=== PATIENT | male | born 1965 | race Caucasian/White ===

== ENCOUNTER → 2018-12-20 09:00 | Outpatient (CLI) | payer OTHER, SELFPAY ==
[2018-12-20 10:27] LABS: Alanine Aminotransferase 46 IU/L (21-72); Albumin 4.8 g/dL (3.5-5.0); Albumin Globulin Ratio 1.6 (1.0-2.8); Alkaline Phosphatase 41 U/L (38-126); Aspartate Aminotransferase 26 IU/L (17-59); Bilirubin Total 0.5 mg/dL (0.2-1.3); Blood Urea Nitrogen 14 mg/dL (9-20); Calcium 9.5 mg/dL (8.4-10.2); Carbon Dioxide 29 mmol/L (22-32); Chloride 101 mmol/L (98-107); Cholesterol 233 mg/dL (140-199); Estimated Glomerular Filt Rate > 60.0 mL/min (>60); Glucose 106 mg/dL (70-100); HDL Cholesterol 62 mg/dL (40-60); HEMOLYSIS < 15 (0-50); LDL Cholesterol Calculated 152 mg/dL (<100); Potassium 4.4 mmol/L (3.4-5.1); Sodium 140 mmol/L (137-145); Total Protein 7.8 g/dL (6.3-8.2); Triglycerides 97 mg/dL (35-150)
[2018-12-20 10:48] LABS: TSH w/ Reflex to FT4 3.68 uIU/mL (0.47-4.68)
== END ==
PROVIDERS: PCP Internal Medicine; Visit Provider Internal Medicine
DX: E78.00 Pure hypercholesterolemia, unspecified (principal); M1A.9XX0 Chronic gout, unspecified, without tophus (tophi)
CPT/HCPCS: 36415; 80053; 80061; 84443; 84550

== ENCOUNTER → 2019-10-22 08:33 | Outpatient (CLI) | payer OTHER, SELFPAY ==
[2019-10-22 09:41] LABS: Alanine Aminotransferase 24 IU/L (<50); Albumin 4.9 g/dL (3.5-5.0); Albumin Globulin Ratio 1.7 (1.0-2.8); Alkaline Phosphatase 44 U/L (38-126); Aspartate Aminotransferase 32 IU/L (17-59); BUN Creatinine Ratio 24.3 (6-22); Bilirubin Total 0.7 mg/dL (0.2-1.3); Blood Urea Nitrogen 17 mg/dL (9-20); Calcium 9.5 mg/dL (8.4-10.2); Carbon Dioxide 29 mmol/L (22-32); Chloride 102 mmol/L (98-107); Cholesterol 248 mg/dL (140-199); Estimated Glomerular Filt Rate > 60.0 mL/min (>60); Globulin 2.9 g/dL (1.7-4.1); Glucose 96 mg/dL (70-100); HDL Cholesterol 85 mg/dL (40-60); HEMOLYSIS 18 (0-50); LDL Cholesterol Calculated 125 mg/dL (<100); Potassium 4.4 mmol/L (3.4-5.1); Sodium 140 mmol/L (137-145); Total Protein 7.8 g/dL (6.3-8.2); Triglycerides 190 mg/dL (35-150); Uric Acid 6.2 mg/dL (3.5-8.5)
== END ==
PROVIDERS: PCP Internal Medicine; Visit Provider Internal Medicine
DX: Z13.1 Encounter for screening for diabetes mellitus (principal); Z13.220 Encounter for screening for lipoid disorders; Z13.6 Encounter for screening for cardiovascular disorders; M1A.9XX0 Chronic gout, unspecified, without tophus (tophi)
CPT/HCPCS: 36415; 80053; 80061; 84550

== ENCOUNTER → 2020-10-25 10:52 | Outpatient (CLI) | payer OTHER, SELFPAY ==
[2020-10-25 13:01] LABS: COVID19 -Nasal RAPID Negative (Negative)
== END ==
PROVIDERS: PCP Internal Medicine; Visit Provider Specialist
DX: Z01.812 Encounter for preprocedural laboratory examination (principal); Z20.822 Contact with and (suspected) exposure to COVID-19
CPT/HCPCS: 87635; C9803

== ENCOUNTER 2020-10-26 10:34 | Day surgery (SDC) | payer OTHER, SELFPAY ==
--- NOTE | 2020-10-26 | PATH_ITS ---
[facility] Accession Number: [id number] . 01 Material submitted: . colon - CECAL POLYP . 01 Clinical history: . SDC . 02 Diagnosis: Cecum, Polyp, Biopsy: Tubular adenoma. MRV 10/29/2020 1315 Local . 02 Electronically signed: . Susan Velazquez MD, Pathologist NPI- [id number] . 01 Gross description: . CECAL POLYP: Received in formalin is 1 fragment(s) of montes, soft tissue measuring 0.3 x 0.2 x 0.2 cm submitted entirely in 1 cassette(s) /JEAN 10/27/2020 2208 Local . 02 Pathologist provided ICD-10: D12.0 . 02 CPT . 125607 Performed at: 01 [facility] [address] [facility], [place], [place] [id number] MD Jas Luna MD Phone: [phone] Performed at: 02 [facility] [address] [place], [place] [id number] MD Susan Velazquez MD Phone: [phone]
[2020-10-26 10:51] VITALS: BP 150/95; PULSE 93; RESP 16; TEMP 36.2; O2SAT 98; BMI 25.8
[2020-10-26] MEDS: LACTATED RINGERS 1,000 ML 200 ML IV (11:06)
--- NOTE | 2020-10-26 12:12 | PM.HP.1 ---
History of Present Illness History of Present Illness Date Patient Seen: 10/26/20 Time Patient Seen: 12:12 Chief complaint: SDC Narrative: Patient is a gentleman here for screening colonoscopy. Last exam was about 7 years ago. He has had polyps removed in the past. 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) Depression History of closed head injury (04/02/17) Perineal pain in male (04/02/17) Traumatic brain injury Surgical History H/O hernia repair Status post hernia repair Family & Social History Family History Brother Colon cancer Mother COPD (chronic obstructive pulmonary disease) Social History: household members spouse Tobacco & Substance use: Smoking Status Never smoker alcohol intake current alcohol intake frequency 0-2 drinks per day Substance Use Type does not use Meds Home Medications and Allergies Home Medications Medication Instructions Recorded Confirmed Type allopurinol 150 mg PO QDAY 10/26/20 10/26/20 History Allergies Allergy/AdvReac Type Severity Reaction Status Date / Time azithromycin [AZITHROMYCIN] Allergy Unknown Verified 10/26/20 10:48 Review of Systems Review of Systems ROS: Yes All systems reviewed with the patient and are negative except as otherwise documented Exam Vital Signs (past 8 hours): - 10/26/20 10:51 Temperature 97.2 F L Pulse Rate 93 H Respiratory Rate 16 Blood Pressure 150/95 H Pulse Oximetry 98 Oxygen Delivery Method Room Air Narrative Exam Narrative: Pleasant cooperative patient no apparent distress. Lungs are clear to auscultation. No rales or rhonchi. Heart regular rate and rhythm no murmur gallop. Abdomen is soft nontender without mass. No obvious hernias. Patient is alert and oriented x3. Assessment & Plan Assessment & Plan narrative: The patient for a screening colonoscopy. I have discussed the procedure with them. Risks of bleeding, perforation which would necessitate major operation, failure to find remove all lesions, the potential tattoo were all discussed. All questions were answered. They wished to proceed.
--- NOTE | 2020-10-26 12:14 | PM.PREOP ---
Pre-operative Note COVID-19 COVID-19 status: Negative Result date/Date tested (Pos, Neg/Pending): 10/25/20 Interval Note History & Physical reviewed/Exam performed by Physician: Yes Changes to H&P: No ASA Class (for procedural sedation): I
[2020-10-26] MEDS: MIDAZOLAM 5 MG/5 ML VIAL IV ×2 (12:17→12:26)
[2020-10-26] MEDS: fentaNYL 250 MCG/5 ML INJ IV ×2 (12:18→12:26)
[2020-10-26] MEDS: LIDOCAINE JELLY 2% 5 ML 1 APPLIC TOP (12:22)
--- NOTE | 2020-10-26 12:48 | PM.OP.ENDO ---
Operative Date/Time/Diagnoses Date of procedure: 10/26/20 Time of procedure: 12:48 Pre-op diagnosis: Screening exam for colon cancer. Last exam 7 years ago. Personal history of polyps. Post-op diagnosis: same (Single polyp in the cecum.) Procedure & Clinicians Study performed: Colonoscopy with cold biopsy Same procedure as scheduled: Yes Indications: Screening Surgeon: Derrick Castro Procedure Notes SCOAP/Timeout: Performed Procedure in detail: The patient was placed in the left lateral decubitus position and underwent IV sedation directed by the surgeon consisting of fentanyl and Versed. Digital exam was remarkable for a rather tight anal sphincter. The skin in the perianal skin was somewhat pale but there were no cracks or splits and no rash.. The scope was inserted and advanced through the rectum into the sigmoid, descending, transverse, and ascending colon. No lesions were seen. The cecum was reached identified by the ileocecal valve and the appendiceal opening. There was a small polyp in the cecum which I biopsied and completely removed. The scope was gradually brought out. No other Polyps were found. The scope ultimately was retroflexed in the rectum. The appearance was normal.. The scope was removed and the patient tolerated the procedure well. The prep was excellent. Scope withdrawal time: 11 minutes Sedation minutes: 27 Findings: polyp (Cecal) Specimen(s): other (Polyp) Complications: none Post-procedure Recommendations: Colonscopy in 5 years Follow up: as needed Disposition: PACU
[2020-10-26 12:49] VITALS: BP 127/85; PULSE 83; RESP 11; TEMP 36.7; O2SAT 95
[2020-10-26 12:54] VITALS: BP 118/86; PULSE 84; RESP 12; O2SAT 95
[2020-10-26 12:59] VITALS: BP 111/78; PULSE 84; RESP 10; O2SAT 95
[2020-10-26 13:14] VITALS: BP 114/82; PULSE 76; RESP 15; O2SAT 94
[2020-10-26 13:23] VITALS: BP 130/83; PULSE 80; RESP 16; TEMP 37.6; O2SAT 96
--- NOTE | 2020-10-26 13:42 | SUR.PHASEII ---
Pt has met discharge criteria: VSS, denied pain or nausea, able to drink fluids without difficulty, abdomen soft. Discharge instructions discussed, all questions answered. Pt transported via W/C to private vehicle.
== END 2020-10-26 13:35 | disposition home or self-care (01) ==
PROVIDERS: PCP Internal Medicine; Referring Provider Specialist; Visit Provider Specialist
PROC: 0DJD8ZZ Inspection of Lower Intestinal Tract, Via Natural or Artificial Opening Endoscopic (ICD-10-PCS; CPT 45378; principal; 2020-10-26 11:30)
DX: Z12.11 Encounter for screening for malignant neoplasm of colon (principal); Z86.010 Personal history of colon polyps; F32.9 Major depressive disorder, single episode, unspecified; D12.0 Benign neoplasm of cecum
CPT/HCPCS: 45380; 99152; J2250; J3010

== ENCOUNTER → 2021-04-29 07:17 | Outpatient (CLI) | payer OTHER, SELFPAY ==
[2021-04-29 09:02] LABS: Alanine Aminotransferase 23 IU/L (<50); Albumin 4.6 g/dL (3.5-5.0); Albumin Globulin Ratio 1.8 (1.0-2.8); Alkaline Phosphatase 44 U/L (38-126); Aspartate Aminotransferase 30 IU/L (17-59); BUN Creatinine Ratio 16.7 (6-22); Bilirubin Total 0.5 mg/dL (0.2-1.3); Blood Urea Nitrogen 13 mg/dL (9-20); Calcium 9.7 mg/dL (8.4-10.2); Carbon Dioxide 29 mmol/L (22-32); Chloride 105 mmol/L (98-107); Cholesterol 215 mg/dL (140-199); Estimated Glomerular Filt Rate > 60.0 mL/min (>60); Globulin 2.5 g/dL (1.7-4.1); Glucose 91 mg/dL (70-100); HDL Cholesterol 95 mg/dL (40-60); HEMOLYSIS < 15 (0-50); LDL Cholesterol Calculated 86 mg/dL (<100); Potassium 4.6 mmol/L (3.4-5.1); Sodium 141 mmol/L (137-145); Total Protein 7.1 g/dL (6.3-8.2); Triglycerides 169 mg/dL (35-150); Uric Acid 6.1 mg/dL (3.5-8.5)
== END ==
PROVIDERS: PCP Internal Medicine; Referring Provider Internal Medicine; Visit Provider Internal Medicine
DX: M1A.9XX0 Chronic gout, unspecified, without tophus (tophi) (principal); Z13.1 Encounter for screening for diabetes mellitus; Z13.220 Encounter for screening for lipoid disorders
CPT/HCPCS: 36415; 80053; 80061; 84550

== ENCOUNTER → 2023-06-07 07:21 | Outpatient (CLI) | payer OTHER, SELFPAY ==
[2023-06-07 08:54] LABS: Alanine Aminotransferase 28 IU/L (<50); Albumin 4.8 g/dL (3.5-5.0); Albumin Globulin Ratio 1.7 (1.0-2.8); Alkaline Phosphatase 42 U/L (38-126); Aspartate Aminotransferase 31 IU/L (17-59); BUN Creatinine Ratio 21.9 (6-22); Bilirubin Total 0.5 mg/dL (0.2-1.3); Blood Urea Nitrogen 14 mg/dL (9-20); Calcium 9.7 mg/dL (8.4-10.2); Carbon Dioxide 26 mmol/L (22-32); Chloride 104 mmol/L (98-107); Cholesterol 246 mg/dL (140-199); Estimated Glomerular Filt Rate > 60 mL/min (>60); Globulin 2.8 g/dL (1.7-4.1); Glucose 95 mg/dL (70-100); HDL Cholesterol 83 mg/dL (40-60); HEMOLYSIS 33 (0-50); LDL Cholesterol Calculated 105 mg/dL (<100); Potassium 4.8 mmol/L (3.4-5.1); Sodium 140 mmol/L (137-145); Total Protein 7.6 g/dL (6.3-8.2); Triglycerides 292 mg/dL (35-150); Uric Acid 4.4 mg/dL (3.5-8.5)
[2023-06-07 09:16] LABS: Prostate Specific Antigen Scrn 0.295 ng/mL (0.1-4.0)
== END ==
PROVIDERS: PCP Internal Medicine; Referring Provider Internal Medicine; Visit Provider Internal Medicine
DX: F32.9 Major depressive disorder, single episode, unspecified (principal); M1A.9XX0 Chronic gout, unspecified, without tophus (tophi); Z13.1 Encounter for screening for diabetes mellitus; Z13.6 Encounter for screening for cardiovascular disorders; Z79.899 Other long term (current) drug therapy; Z12.5 Encounter for screening for malignant neoplasm of prostate
CPT/HCPCS: 36415; 80053; 80061; 84550; G0103

== ENCOUNTER 2023-08-21 16:00 | Outpatient (RCR) | payer OTHER, SELFPAY ==
--- NOTE | 2023-07-20 15:18 | PT.OPPOC ---
Physical, Occupational & Speech Therapy At [facility] Current Diagnoses Pain in right shoulder (07/20/23) Visit Care Team Role Provider Type Robb Patel MD Attending Provider Physician Family Provider Primary Care Provider Referring Provider Specialty: Internal Medicine Address: [address] [place] [address], [address], [address] Email: [email or web address] Plan Of Care PT-OP-T Assessment and Plan Start: 07/20/23 15:16 Freq: Status: Active Protocol: Document 07/20/23 15:16 AM (Rec: 07/20/23 18:08 AM [id number]) Physical Therapy Assessment Rehab Potential Rehabilitation Potential Excellent Evaluation Complexity Number of Personal Factors/Comorbidities 0 Number of Body Systems Impaired 1-2 Clinical Presentation at Evaluation Stable Impairments Impairments Functional Mobility,Pain, Posture,ROM,Soft Tissue Mobility,Strength Goals HEP New Car Make Ready Worker Goal (LTG) Pt independent with HEP. LTG Duration 08/31/23 ROM Impairment Pt with limitations with R shoulder flexion. AROM at 135 deg Short Term Goal (STG) R=L AROM shoulder flexion. STG Duration 08/10/23 Quick Dash Impairment Pt score of 18% on Quick Dash [facility] Goal (LTG) Pt with score of <10% on Quick Dash LTG Duration 08/31/23 Sleep Impairment Pt with R shoulder pain with sleeping New Car Make Ready Worker Goal (LTG) Pt to report that he is able to sleep without increase in shoulder pain. LTG Duration 08/31/23 Pain Impairment Pt reports 5/10 pain at R shoulder. Short Term Goal (STG) Pt reports 3/10 pain at R shoulder. STG Duration 08/10/23 New Car Make Ready Worker Goal (LTG) Pt reports pain <1/10 at R shoulder LTG Duration 08/31/23 Assessment Summary Assessment Carlos Truong presents to PT to address R shoulder pain that he has been having since March 2023. Pt demonstrates minor limitations in shoulder ROM on R compared to L, with discomfort at end-ranges. Pt demonstrates weakness at R shoulder compared to L. Pt demonstrates scapular dyskinesia, likely contributing to pain. Pt with discomfort with special tests and with MMT of R biceps. Pt able to tolerate AAROM flexion and abduction, given in HEP, though cued to avoid painful ranges. Pt demonstrates good PROM. Pt with forward shoulders and stiffness at pec minor. Pt would benefit from continued PT to improve scapulohumeral mechanics and strength as tolerated to decrease pain with functional tasks. Physical Therapy Plan Frequency and Duration Frequency of Treatment 2x/Week Duration of treatment (weeks) 6 Plan of Care Start Date 07/20/23 Plan of Care End Date 08/31/23 Therapeutic Interventions Therapeutic Interventions Home Exercise Program,Joint Mobilizations,Manual Therapy, Neuromuscular Re-education, Patient/Caregiver Education, Self-Care/Home Management,Soft Tissue Mobilization,Taping, Therapeutic Activities, Therapeutic Exercises Modalities Cold Pack/Ice Massage,Electric Stimulation,Hot Packs, Ultrasound Next Visit Focus/Plan Next Note Type Treatment Note Next Visit Plan Initiate manual techniques, progress shoulder strength as tolerated, improve scapular control Plan of Care Dates Plan of Care Start Date 07/20/23 Plan of Care End Date 08/31/23 Electronically Signed by: Kaylee Kelly, PT 07/20/23 4659 If you are in agreement with this Plan of Care, please return a signed and dated copy. I have reviewed this Plan of Care and certify that the skilled therapy services above are required to meet the patient?s needs. Physician Signature Date Printed Name and Credentials Clinical Instructor Signature Printed Name and Credentials
--- NOTE | 2023-07-20 15:18 | PT.OIE ---
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) Depression History of adenomatous polyp of colon History of closed head injury (04/02/17) Perineal pain in male (04/02/17) Traumatic brain injury Past Surgical History (Last Reviewed 06/05/23 @ 15:28 by Robb Patel MD) H/O hernia repair Status post hernia repair Visit Care Team Role Provider Type Robb Patel MD Attending Provider Physician Family Provider Primary Care Provider Referring Provider Specialty: Internal Medicine Address: [address] [place] [address], [address], [facility] Email: [email or web address] Physical Therapy Initial Evaluation PT-OP-A Visit Information Start: 07/20/23 15:16 Freq: Status: Active Protocol: Document 07/20/23 15:16 AM (Rec: 07/20/23 18:08 AM [id number]) Out-Patient Physical Therapy Visit Information Visit Information Visit Type Initial Evaluation Visit Start Time 15:18 Visit Stop Time 16:00 Total Visit Minutes 42 Visit Number 1 Number of CIGARETTE TESTER Visits 0 Evaluation Information Evaluation Date 07/20/23 PT-OP-B Current Condition Start: 07/20/23 15:16 Freq: Status: Active Protocol: Document 07/20/23 15:16 AM (Rec: 07/20/23 18:08 AM [id number]) Current Condition History of Current Condition Onset Date March 2023 Current Complaints R shoulder pain History of Current Condition Pt reports pain started over the summer. Pt reports that he thinks that he might have fallen on it. Pain at top of shoulder. Pt reports sleep is difficulty. Pt reports symptoms with activity at 90 deg abduction/flexion. Pt reports that he is able to do push-ups without discomfort. Prior Treatments and Tests none scheduled Treatment Goals Patient/Caregiver Goals To decrease pain Prior Functional Status Baseline Function- ADL's Independent Baseline Function- Mobility Independent Current Functional Impairments (Reported) Functional Limitations- ADL's Independent Functional Limitations- Work/School No limitations at work. PT-OP-C Subjective Start: 07/20/23 15:16 Freq: Status: Active Protocol: Document 07/20/23 15:16 AM (Rec: 07/20/23 18:08 AM [id number]) Patient Questionnaires Quick Dash- Upper Extremity Quick Dash UE Score 19 Quick Dash UE Impairment 1 to 19% Impaired (Score 1-19) OP-PT Pain Assessment Pain Assessment Grid Paper Pain Assessment Grid Completed Yes Location Right Proximal Shoulder Pain Location Details R shoulder Intensity 4 Scale Used Numeric (0 - 10) Description Aching Frequency Daily Pain Aggravating Factors Lifting Other Pain Aggravating Factors sleeping on R side, which is preferred side PT-OP-J Posture/Palpation/Skin Start: 07/20/23 15:16 Freq: Status: Active Protocol: Document 07/20/23 15:16 AM (Rec: 07/20/23 18:08 AM [id number]) Posture Evaluation Position Sitting Head/C-Spine Posture Forward Head Shoulder Posture (L) Forward,(R) Forward Scapula Posture (L) Protracted,(R) Protracted, (R) Tipped PT-OP-K Range of Motion Start: 07/20/23 15:16 Freq: Status: Active Protocol: Document 07/20/23 15:16 AM (Rec: 07/20/23 18:08 AM [id number]) Shoulder Goniometric Range of Motion Shoulder Right Passive Flexion 150 Abduction 160 Right Active Shoulder ROM WFL No Testing Position Sitting Flexion 135 Abduction 160 Internal Rotation Behind Back (text) L1 Comments Aply ER: T6 Left Active Testing Position Sitting Flexion 162 Abduction 160 Internal Rotation Behind Back (text) T10 Comments Aply ER: T6 PT-OP-L Special Tests Start: 07/20/23 15:16 Freq: Status: Active Protocol: Document 07/20/23 15:16 AM (Rec: 07/20/23 18:08 AM [id number]) Special Tests Shoulder Special Tests Elevation Impingement Test Results + on R Speed's Biceps Test Results + on R PT-OP-M Strength Start: 07/20/23 15:16 Freq: Status: Active Protocol: Document 07/20/23 15:16 AM (Rec: 07/20/23 18:08 AM [id number]) Shoulder Strength Shoulder Manual Muscle Testing Right Flexion 4 Good Abduction (C5) 4 Good External Rotation 4 Good Internal Rotation 4 Good Comments Pain with abd and flex Left Flexion 5 Normal Abduction (C5) 5 Normal External Rotation 5 Normal Internal Rotation 5 Normal Elbow/Forearm Strength Elbow and Forearm Manual Muscle Testing Right Flexion (C6) 4- Good- Extension (C7) 4 Good Comments Pain with testing of biceps Left Flexion (C6) 5 Normal Extension (C7) 5 Normal PT-OP-Q Treatments Start: 07/20/23 15:16 Freq: Status: Active Protocol: Document 07/20/23 15:16 AM (Rec: 07/20/23 18:08 AM [id number]) Therapeutic Exercises Standing Exercises AAROM abduction Standing Exercise Name Dowel abduction Side right Reps/Minutes x10 Row Standing Exercise Name Standing row Side bilateral Resistance GTB Reps/Minutes x20 Wall slides Standing Exercise Name Wall slides with cues for serratus Side right Reps/Minutes x10 PT-OP-T Assessment and Plan Start: 07/20/23 15:16 Freq: Status: Active Protocol: Document 07/20/23 15:16 AM (Rec: 07/20/23 18:08 AM [id number]) Physical Therapy Assessment Rehab Potential Rehabilitation Potential Excellent Evaluation Complexity Number of Personal Factors/Comorbidities 0 Number of Body Systems Impaired 1-2 Clinical Presentation at Evaluation Stable Impairments Impairments Functional Mobility,Pain, Posture,ROM,Soft Tissue Mobility,Strength Goals HEP Correction Goal (LTG) Pt independent with HEP. LTG Duration 08/31/23 ROM Impairment Pt with limitations with R shoulder flexion. AROM at 135 deg Short Term Goal (STG) R=L AROM shoulder flexion. STG Duration 08/10/23 Quick Dash Impairment Pt score of 18% on Quick Dash Correction Goal (LTG) Pt with score of <10% on Quick Dash LTG Duration 08/31/23 Sleep Impairment Pt with R shoulder pain with sleeping Skid Strapper Goal (LTG) Pt to report that he is able to sleep without increase in shoulder pain. LTG Duration 08/31/23 Pain Impairment Pt reports 5/10 pain at R shoulder. Short Term Goal (STG) Pt reports 3/10 pain at R shoulder. STG Duration 08/10/23 Skid Strapper Goal (LTG) Pt reports pain <1/10 at R shoulder LTG Duration 08/31/23 Assessment Summary Assessment Carlos Truong presents to PT to address R shoulder pain that he has been having since March 2023. Pt demonstrates minor limitations in shoulder ROM on R compared to L, with discomfort at end-ranges. Pt demonstrates weakness at R shoulder compared to L. Pt demonstrates scapular dyskinesia, likely contributing to pain. Pt with discomfort with special tests and with MMT of R biceps. Pt able to tolerate AAROM flexion and abduction, given in HEP, though cued to avoid painful ranges. Pt demonstrates good PROM. Pt with forward shoulders and stiffness at pec minor. Pt would benefit from continued PT to improve scapulohumeral mechanics and strength as tolerated to decrease pain with functional tasks. Physical Therapy Plan Frequency and Duration Frequency of Treatment 2x/Week Duration of treatment (weeks) 6 Plan of Care Start Date 07/20/23 Plan of Care End Date 08/31/23 Therapeutic Interventions Therapeutic Interventions Home Exercise Program,Joint Mobilizations,Manual Therapy, Neuromuscular Re-education, Patient/Caregiver Education, Self-Care/Home Management,Soft Tissue Mobilization,Taping, Therapeutic Activities, Therapeutic Exercises Modalities Cold Pack/Ice Massage,Electric Stimulation,Hot Packs, Ultrasound Next Visit Focus/Plan Next Note Type Treatment Note Next Visit Plan Initiate manual techniques, progress shoulder strength as tolerated, improve scapular control
--- NOTE | 2023-07-23 15:17 | PT.OTN ---
Current Diagnoses Pain in right shoulder (07/23/23) Physical Therapy Treatment Note PT-OP-A Visit Information Start: 07/20/23 15:16 Freq: Status: Active Protocol: Document 07/23/23 15:17 AM (Rec: 07/23/23 17:28 AM [id number]) Out-Patient Physical Therapy Visit Information Visit Information Visit Type Treatment Note Visit Start Time 15:17 Visit Stop Time 16:02 Total Visit Minutes 45 Visit Number 2 PT-OP-B Current Condition Start: 07/20/23 15:16 Freq: Status: Active Protocol: Document 07/23/23 15:17 AM (Rec: 07/23/23 17:28 AM [id number]) Current Condition History of Current Condition Onset Date March 2023 Current Complaints R shoulder pain History of Current Condition Pt reports pain started over the summer. Pt reports that he thinks that he might have fallen on it. Pain at top of shoulder. Pt reports sleep is difficulty. Pt reports symptoms with activity at 90 deg abduction/flexion. Pt reports that he is able to do push-ups without discomfort. Prior Treatments and Tests none scheduled PT-OP-C Subjective Start: 07/20/23 15:16 Freq: Status: Active Protocol: Document 07/23/23 15:17 AM (Rec: 07/23/23 17:29 AM [id number]) OP-PT Subjective Patient Comments Patient Comments Pt reports similar pain complaints. Pt denies pain with HEP. PT-OP-J Posture/Palpation/Skin Start: 07/20/23 15:16 Freq: Status: Active Protocol: Document 07/20/23 15:16 AM (Rec: 07/20/23 18:08 AM [id number]) Posture Evaluation Position Sitting Head/C-Spine Posture Forward Head Shoulder Posture (L) Forward,(R) Forward Scapula Posture (L) Protracted,(R) Protracted, (R) Tipped PT-OP-K Range of Motion Start: 07/20/23 15:16 Freq: Status: Active Protocol: Document 07/20/23 15:16 AM (Rec: 07/20/23 18:08 AM [id number]) Shoulder Goniometric Range of Motion Shoulder Right Passive Flexion 150 Abduction 160 Right Active Shoulder ROM WFL No Testing Position Sitting Flexion 135 Abduction 160 Internal Rotation Behind Back (text) L1 Comments Aply ER: T6 Left Active Testing Position Sitting Flexion 162 Abduction 160 Internal Rotation Behind Back (text) T10 Comments Aply ER: T6 PT-OP-L Special Tests Start: 07/20/23 15:16 Freq: Status: Active Protocol: Document 07/20/23 15:16 AM (Rec: 07/20/23 18:08 AM [id number]) Special Tests Shoulder Special Tests Elevation Impingement Test Results + on R Speed's Biceps Test Results + on R PT-OP-M Strength Start: 07/20/23 15:16 Freq: Status: Active Protocol: Document 07/20/23 15:16 AM (Rec: 07/20/23 18:08 AM [id number]) Shoulder Strength Shoulder Manual Muscle Testing Right Flexion 4 Good Abduction (C5) 4 Good External Rotation 4 Good Internal Rotation 4 Good Comments Pain with abd and flex Left Flexion 5 Normal Abduction (C5) 5 Normal External Rotation 5 Normal Internal Rotation 5 Normal Elbow/Forearm Strength Elbow and Forearm Manual Muscle Testing Right Flexion (C6) 4- Good- Extension (C7) 4 Good Comments Pain with testing of biceps Left Flexion (C6) 5 Normal Extension (C7) 5 Normal PT-OP-Q Treatments Start: 07/20/23 15:16 Freq: Status: Active Protocol: Document 07/23/23 15:17 AM (Rec: 07/23/23 17:28 AM [id number]) Cardio Equipment Upper Body Ergometer (UBE) Duration (Minutes) 4 RPM 70 Seat Position 12 Other fwd/back Therapeutic Exercises Supine Exercises Rhythmic stab Supine Exercise Name Shoulder at 90 deg Side right Reps/Minutes 2x30 sec Comments manual perturbations at arm Serratus punch Supine Exercise Name Serratus punch Side right Resistance 2# Reps/Minutes 2x10 Prone Exercises Prone row Prone Exercise Name Prone row Side right Reps/Minutes x15 Comments tactile cueing for scapular control Sidelying Exercises Shoulder abduction Sidelying Exercise Name Shoulder abduction to 90 deg Side right Reps/Minutes 2x10 Shoulder ER Sidelying Exercise Name Sidelying shoulder ER Side right Equipment Used towel at elbow Reps/Minutes 2x10 Comments 1# weight added to second set Standing Exercises Shoulder extension Standing Exercise Name Shoulder extension Side bilateral Resistance GTB Reps/Minutes 2x10 Row Standing Exercise Name Standing row Side bilateral Resistance GTB Reps/Minutes 2x10 Wall slides Standing Exercise Name Wall slides with cues for serratus Side right Reps/Minutes x10 Manual Therapy Treatment Soft Tissue Mobilization Periscapular Body Location infraspinatus, teres major/ minor, posterior deltoid Body Position Prone Comments R arm hanging off of table Joint Mobilizations Shoulder Joint S-I glide Direction S-I Grade III Body Position Supine PT-OP-T Assessment and Plan Start: 07/20/23 15:16 Freq: Status: Active Protocol: Document 07/23/23 15:17 AM (Rec: 07/23/23 17:28 AM [id number]) Physical Therapy Assessment Impairments Impairments Functional Mobility,Pain, Posture,ROM,Soft Tissue Mobility,Strength Goals HEP Retirement Goal (LTG) Pt independent with HEP. LTG Duration 08/31/23 ROM Impairment Pt with limitations with R shoulder flexion. AROM at 135 deg Short Term Goal (STG) R=L AROM shoulder flexion. STG Duration 08/10/23 Quick Dash Impairment Pt score of 18% on Quick Dash Retirement Goal (LTG) Pt with score of <10% on Quick Dash LTG Duration 08/31/23 Sleep Impairment Pt with R shoulder pain with sleeping Outside Plant Technician Goal (LTG) Pt to report that he is able to sleep without increase in shoulder pain. LTG Duration 08/31/23 Pain Impairment Pt reports 5/10 pain at R shoulder. Short Term Goal (STG) Pt reports 3/10 pain at R shoulder. STG Duration 08/10/23 Retirement Goal (LTG) Pt reports pain <1/10 at R shoulder LTG Duration 08/31/23 Assessment Summary Assessment Pt demonstrates continued scapular dyskinesia with R shoulder AROM. Pt required tactile cueing for scapular retraction. Pt with tenderness at scapular muscles with STM, particularly at infraspinatus . Pt would benefit from continued PT to progress rotator cuff strength and scapular mechanics to decrease pain with UE activities. Physical Therapy Plan Frequency and Duration Frequency of Treatment 2x/Week Duration of treatment (weeks) 6 Plan of Care Start Date 07/20/23 Plan of Care End Date 08/31/23 Therapeutic Interventions Therapeutic Interventions Home Exercise Program,Joint Mobilizations,Manual Therapy, Neuromuscular Re-education, Patient/Caregiver Education, Self-Care/Home Management,Soft Tissue Mobilization,Taping, Therapeutic Activities, Therapeutic Exercises Modalities Cold Pack/Ice Massage,Electric Stimulation,Hot Packs, Ultrasound Next Visit Focus/Plan Next Note Type Treatment Note Next Visit Plan progress shoulder strength as tolerated, improve scapular control
--- NOTE | 2023-07-26 15:17 | PT.OTN ---
Current Diagnoses Pain in right shoulder (07/26/23) Physical Therapy Treatment Note PT-OP-A Visit Information Start: 07/20/23 15:16 Freq: Status: Active Protocol: Document 07/26/23 15:17 AM (Rec: 07/26/23 17:09 AM [id number]) Out-Patient Physical Therapy Visit Information Visit Information Visit Type Treatment Note Visit Start Time 15:21 Visit Stop Time 16:06 Total Visit Minutes 45 Visit Number 3 PT-OP-B Current Condition Start: 07/20/23 15:16 Freq: Status: Active Protocol: Document 07/23/23 15:17 AM (Rec: 07/23/23 17:28 AM [id number]) Current Condition History of Current Condition Onset Date March 2023 Current Complaints R shoulder pain History of Current Condition Pt reports pain started over the summer. Pt reports that he thinks that he might have fallen on it. Pain at top of shoulder. Pt reports sleep is difficulty. Pt reports symptoms with activity at 90 deg abduction/flexion. Pt reports that he is able to do push-ups without discomfort. Prior Treatments and Tests none scheduled PT-OP-C Subjective Start: 07/20/23 15:16 Freq: Status: Active Protocol: Document 07/26/23 15:17 AM (Rec: 07/26/23 17:09 AM [id number]) OP-PT Subjective Patient Comments Patient Comments Pt reports that his shoulder felt better after last session . Pt continues to have clicking at top of shoulder. PT-OP-J Posture/Palpation/Skin Start: 07/20/23 15:16 Freq: Status: Active Protocol: Document 07/20/23 15:16 AM (Rec: 07/20/23 18:08 AM [id number]) Posture Evaluation Position Sitting Head/C-Spine Posture Forward Head Shoulder Posture (L) Forward,(R) Forward Scapula Posture (L) Protracted,(R) Protracted, (R) Tipped PT-OP-K Range of Motion Start: 07/20/23 15:16 Freq: Status: Active Protocol: Document 07/20/23 15:16 AM (Rec: 07/20/23 18:08 AM [id number]) Shoulder Goniometric Range of Motion Shoulder Right Passive Flexion 150 Abduction 160 Right Active Shoulder ROM WFL No Testing Position Sitting Flexion 135 Abduction 160 Internal Rotation Behind Back (text) L1 Comments Aply ER: T6 Left Active Testing Position Sitting Flexion 162 Abduction 160 Internal Rotation Behind Back (text) T10 Comments Aply ER: T6 PT-OP-L Special Tests Start: 07/20/23 15:16 Freq: Status: Active Protocol: Document 07/20/23 15:16 AM (Rec: 07/20/23 18:08 AM [id number]) Special Tests Shoulder Special Tests Elevation Impingement Test Results + on R Speed's Biceps Test Results + on R PT-OP-M Strength Start: 07/20/23 15:16 Freq: Status: Active Protocol: Document 07/20/23 15:16 AM (Rec: 07/20/23 18:08 AM [id number]) Shoulder Strength Shoulder Manual Muscle Testing Right Flexion 4 Good Abduction (C5) 4 Good External Rotation 4 Good Internal Rotation 4 Good Comments Pain with abd and flex Left Flexion 5 Normal Abduction (C5) 5 Normal External Rotation 5 Normal Internal Rotation 5 Normal Elbow/Forearm Strength Elbow and Forearm Manual Muscle Testing Right Flexion (C6) 4- Good- Extension (C7) 4 Good Comments Pain with testing of biceps Left Flexion (C6) 5 Normal Extension (C7) 5 Normal PT-OP-Q Treatments Start: 07/20/23 15:16 Freq: Status: Active Protocol: Document 07/26/23 15:17 AM (Rec: 07/26/23 17:09 AM [id number]) Therapeutic Exercises Sidelying Exercises Shoulder abduction Sidelying Exercise Name Shoulder abduction to 90 deg Side right Reps/Minutes 2x10 Comments manual MWM for upward rot of scapula Shoulder ER Sidelying Exercise Name Sidelying shoulder ER Side right Equipment Used towel at elbow Reps/Minutes 2x10 Comments tactile cues for LT and scap stab Standing Exercises Linus shoulder ER Resistance peach TB Reps/Minutes x10 Comments cues for LT engagement Shoulder extension Standing Exercise Name Shoulder extension Side bilateral Resistance GTB Reps/Minutes 2x10 Comments tactile cueing for scap stab, LT Row Standing Exercise Name Standing row Side bilateral Resistance GTB Reps/Minutes 2x10 Comments cues for scap stab Wall slides Standing Exercise Name Wall slides with cues for serratus Side right Reps/Minutes x10 Comments peach TB at wrists, foam roller Manual Therapy Treatment Soft Tissue Mobilization Periscapular Body Location infraspinatus, teres major/ minor, posterior deltoid Body Position Sidelying Comments L sidelying Joint Mobilizations Shoulder Joint S-I glide Direction S-I Grade III Body Position Supine PT-OP-T Assessment and Plan Start: 07/20/23 15:16 Freq: Status: Active Protocol: Document 07/26/23 15:17 AM (Rec: 07/26/23 17:09 AM [id number]) Physical Therapy Assessment Impairments Impairments Functional Mobility,Pain, Posture,ROM,Soft Tissue Mobility,Strength Goals HEP Fdc Goal (LTG) Pt independent with HEP. LTG Duration 08/31/23 ROM Impairment Pt with limitations with R shoulder flexion. AROM at 135 deg Short Term Goal (STG) R=L AROM shoulder flexion. STG Duration 08/10/23 Quick Dash Impairment Pt score of 18% on Quick Dash Cutting Machine Offbearer Goal (LTG) Pt with score of <10% on Quick Dash LTG Duration 08/31/23 Sleep Impairment Pt with R shoulder pain with sleeping Cutting Machine Offbearer Goal (LTG) Pt to report that he is able to sleep without increase in shoulder pain. LTG Duration 08/31/23 Pain Impairment Pt reports 5/10 pain at R shoulder. Short Term Goal (STG) Pt reports 3/10 pain at R shoulder. STG Duration 08/10/23 Cutting Machine Offbearer Goal (LTG) Pt reports pain <1/10 at R shoulder LTG Duration 08/31/23 Assessment Summary Assessment Pt demonstrates improving activation of LT with tactile cueing. Pt with improved tolerance to shoulder ER with scap stab. Pt continues to demonstrate tenderness at infraspinatus and teres. Pt would benefit from continued PT to progress scapular stabilization and rotator cuff strength as tolerated. Physical Therapy Plan Frequency and Duration Frequency of Treatment 2x/Week Duration of treatment (weeks) 6 Plan of Care Start Date 07/20/23 Plan of Care End Date 08/31/23 Therapeutic Interventions Therapeutic Interventions Home Exercise Program,Joint Mobilizations,Manual Therapy, Neuromuscular Re-education, Patient/Caregiver Education, Self-Care/Home Management,Soft Tissue Mobilization,Taping, Therapeutic Activities, Therapeutic Exercises Modalities Cold Pack/Ice Massage,Electric Stimulation,Hot Packs, Ultrasound Next Visit Focus/Plan Next Note Type Treatment Note Next Visit Plan progress shoulder strength as tolerated, improve scapular control
--- NOTE | 2023-08-16 14:19 | PT.OTN ---
Current Diagnoses Pain in right shoulder (08/16/23) Physical Therapy Treatment Note PT-OP-A Visit Information Start: 07/20/23 15:16 Freq: Status: Active Protocol: Document 08/16/23 14:19 AM (Rec: 08/16/23 16:25 AM [id number]) Out-Patient Physical Therapy Visit Information Visit Information Visit Type Progress Note Visit Start Time 14:19 Visit Stop Time 15:01 Total Visit Minutes 42 Visit Number 4 PT-OP-B Current Condition Start: 07/20/23 15:16 Freq: Status: Active Protocol: Document 07/23/23 15:17 AM (Rec: 07/23/23 17:28 AM [id number]) Current Condition History of Current Condition Onset Date March 2023 Current Complaints R shoulder pain History of Current Condition Pt reports pain started over the summer. Pt reports that he thinks that he might have fallen on it. Pain at top of shoulder. Pt reports sleep is difficulty. Pt reports symptoms with activity at 90 deg abduction/flexion. Pt reports that he is able to do push-ups without discomfort. Prior Treatments and Tests none scheduled PT-OP-C Subjective Start: 07/20/23 15:16 Freq: Status: Active Protocol: Document 08/16/23 14:19 AM (Rec: 08/16/23 16:25 AM [id number]) OP-PT Subjective Patient Comments Patient Comments Pt reports that he can now sleep on R side. Pt reports minimal improvement since start of PT. PT-OP-J Posture/Palpation/Skin Start: 07/20/23 15:16 Freq: Status: Active Protocol: Document 07/20/23 15:16 AM (Rec: 07/20/23 18:08 AM [id number]) Posture Evaluation Position Sitting Head/C-Spine Posture Forward Head Shoulder Posture (L) Forward,(R) Forward Scapula Posture (L) Protracted,(R) Protracted, (R) Tipped PT-OP-K Range of Motion Start: 07/20/23 15:16 Freq: Status: Active Protocol: Document 07/20/23 15:16 AM (Rec: 07/20/23 18:08 AM [id number]) Shoulder Goniometric Range of Motion Shoulder Right Passive Flexion 150 Abduction 160 Right Active Shoulder ROM WFL No Testing Position Sitting Flexion 135 Abduction 160 Internal Rotation Behind Back (text) L1 Comments Aply ER: T6 Left Active Testing Position Sitting Flexion 162 Abduction 160 Internal Rotation Behind Back (text) T10 Comments Aply ER: T6 PT-OP-L Special Tests Start: 07/20/23 15:16 Freq: Status: Active Protocol: Document 07/20/23 15:16 AM (Rec: 07/20/23 18:08 AM [id number]) Special Tests Shoulder Special Tests Elevation Impingement Test Results + on R Speed's Biceps Test Results + on R PT-OP-M Strength Start: 07/20/23 15:16 Freq: Status: Active Protocol: Document 07/20/23 15:16 AM (Rec: 07/20/23 18:08 AM [id number]) Shoulder Strength Shoulder Manual Muscle Testing Right Flexion 4 Good Abduction (C5) 4 Good External Rotation 4 Good Internal Rotation 4 Good Comments Pain with abd and flex Left Flexion 5 Normal Abduction (C5) 5 Normal External Rotation 5 Normal Internal Rotation 5 Normal Elbow/Forearm Strength Elbow and Forearm Manual Muscle Testing Right Flexion (C6) 4- Good- Extension (C7) 4 Good Comments Pain with testing of biceps Left Flexion (C6) 5 Normal Extension (C7) 5 Normal PT-OP-Q Treatments Start: 07/20/23 15:16 Freq: Status: Active Protocol: Document 08/16/23 14:19 AM (Rec: 08/16/23 16:25 AM [id number]) Cardio Equipment Upper Body Ergometer (UBE) Duration (Minutes) 4 RPM 70 Seat Position 12 Other fwd/back Therapeutic Exercises Prone Exercises Prone row Prone Exercise Name Prone row Side right Reps/Minutes x15 Comments tactile cueing for scapular control Sidelying Exercises Shoulder abduction Sidelying Exercise Name Shoulder abduction to 90 deg Side right Reps/Minutes 2x10 Comments manual MWM for upward rot of scapula Shoulder ER Sidelying Exercise Name Sidelying shoulder ER Side right Equipment Used towel at elbow Reps/Minutes 2x10 Comments tactile cues for LT and scap stab Standing Exercises Linus shoulder ER Resistance peach TB Reps/Minutes x10 Comments cues for LT engagement Shoulder extension Standing Exercise Name Shoulder extension Side bilateral Resistance GTB Reps/Minutes 2x10 Comments tactile cueing for scap stab, LT Row Standing Exercise Name Standing row Side bilateral Resistance GTB Reps/Minutes 2x10 Comments cues for scap stab Wall slides Standing Exercise Name Wall slides with cues for serratus Side right Reps/Minutes x10 Comments peach TB at wrists, foam roller Manual Therapy Treatment Soft Tissue Mobilization Periscapular Body Location infraspinatus, teres major/ minor, posterior deltoid Body Position Sidelying Comments L sidelying Joint Mobilizations Shoulder Joint S-I glide Direction S-I Grade III Body Position Supine PT-OP-T Assessment and Plan Start: 07/20/23 15:16 Freq: Status: Active Protocol: Document 08/16/23 14:19 AM (Rec: 08/16/23 16:25 AM [id number]) Physical Therapy Assessment Goals HEP Regional Trainer Goal (LTG) Pt independent with HEP. LTG Duration 08/31/23 ROM Impairment Pt with limitations with R shoulder flexion. AROM at 135 deg Short Term Goal (STG) R=L AROM shoulder flexion. 08/16/23: Pt progressing, though goal unmet. Pt with AROM flexion of 142 deg STG Duration 08/10/23 Quick Dash Impairment Pt score of 18% on Quick Dash Assisted Goal (LTG) Pt with score of <10% on Quick Dash LTG Duration 08/31/23 Sleep Impairment Pt with R shoulder pain with sleeping Short Term Goal (STG) 08/16/23: Pt reports that pain is decreased with sleep, though continues to wake him up at times. Regional Trainer Goal (LTG) Pt to report that he is able to sleep without increase in shoulder pain. LTG Duration 08/31/23 Pain Impairment Pt reports 5/10 pain at R shoulder. Short Term Goal (STG) Pt reports 3/10 pain at R shoulder. 08/16/23: Pt reports continued pain up to 5/10 at times. STG Duration 08/10/23 Regional Trainer Goal (LTG) Pt reports pain <1/10 at R shoulder LTG Duration 08/31/23 Progress Towards Goals Progress Towards Goals Slow Progress due to Attendance Issues Assessment Summary Assessment Pt demonstrates improving activation of LT, though continues to require tactile and manual cueing. Pt with poor scapular upward rotation with sidelying shoulder flexion. Pt with continued discomfort with manual assist with scapular upward rotation. Physical Therapy Plan Frequency and Duration Frequency of Treatment 2x/Week Duration of treatment (weeks) 6 Plan of Care Start Date 07/20/23 Plan of Care End Date 08/31/23 Therapeutic Interventions Therapeutic Interventions Home Exercise Program,Joint Mobilizations,Manual Therapy, Neuromuscular Re-education, Patient/Caregiver Education, Self-Care/Home Management,Soft Tissue Mobilization,Taping, Therapeutic Activities, Therapeutic Exercises Modalities Cold Pack/Ice Massage,Electric Stimulation,Hot Packs, Ultrasound Next Visit Focus/Plan Next Note Type Treatment Note Next Visit Plan progress shoulder strength as tolerated, improve scapular control
--- NOTE | 2023-08-21 16:05 | PT.OTN ---
Current Diagnoses Pain in right shoulder (08/21/23) Physical Therapy Treatment Note PT-OP-A Visit Information Start: 07/20/23 15:16 Freq: Status: Active Protocol: Document 08/21/23 16:05 AM (Rec: 08/21/23 17:05 AM [id number]) Out-Patient Physical Therapy Visit Information Visit Information Visit Type Treatment Note Visit Start Time 16:07 Visit Stop Time 16:52 Total Visit Minutes 40 Visit Number 5 PT-OP-B Current Condition Start: 07/20/23 15:16 Freq: Status: Active Protocol: Document 07/23/23 15:17 AM (Rec: 07/23/23 17:28 AM [id number]) Current Condition History of Current Condition Onset Date March 2023 Current Complaints R shoulder pain History of Current Condition Pt reports pain started over the summer. Pt reports that he thinks that he might have fallen on it. Pain at top of shoulder. Pt reports sleep is difficulty. Pt reports symptoms with activity at 90 deg abduction/flexion. Pt reports that he is able to do push-ups without discomfort. Prior Treatments and Tests none scheduled PT-OP-C Subjective Start: 07/20/23 15:16 Freq: Status: Active Protocol: Document 08/21/23 16:05 AM (Rec: 08/21/23 17:05 AM [id number]) OP-PT Subjective Patient Comments Patient Comments Pt reports My shoulder is not terrible today. Pt reports that he called his referring provider to make appt and hopeful for MRI. PT-OP-J Posture/Palpation/Skin Start: 07/20/23 15:16 Freq: Status: Active Protocol: Document 07/20/23 15:16 AM (Rec: 07/20/23 18:08 AM [id number]) Posture Evaluation Position Sitting Head/C-Spine Posture Forward Head Shoulder Posture (L) Forward,(R) Forward Scapula Posture (L) Protracted,(R) Protracted, (R) Tipped PT-OP-K Range of Motion Start: 07/20/23 15:16 Freq: Status: Active Protocol: Document 07/20/23 15:16 AM (Rec: 07/20/23 18:08 AM [id number]) Shoulder Goniometric Range of Motion Shoulder Right Passive Flexion 150 Abduction 160 Right Active Shoulder ROM WFL No Testing Position Sitting Flexion 135 Abduction 160 Internal Rotation Behind Back (text) L1 Comments Aply ER: T6 Left Active Testing Position Sitting Flexion 162 Abduction 160 Internal Rotation Behind Back (text) T10 Comments Aply ER: T6 PT-OP-L Special Tests Start: 07/20/23 15:16 Freq: Status: Active Protocol: Document 07/20/23 15:16 AM (Rec: 07/20/23 18:08 AM [id number]) Special Tests Shoulder Special Tests Elevation Impingement Test Results + on R Speed's Biceps Test Results + on R PT-OP-M Strength Start: 07/20/23 15:16 Freq: Status: Active Protocol: Document 07/20/23 15:16 AM (Rec: 07/20/23 18:08 AM [id number]) Shoulder Strength Shoulder Manual Muscle Testing Right Flexion 4 Good Abduction (C5) 4 Good External Rotation 4 Good Internal Rotation 4 Good Comments Pain with abd and flex Left Flexion 5 Normal Abduction (C5) 5 Normal External Rotation 5 Normal Internal Rotation 5 Normal Elbow/Forearm Strength Elbow and Forearm Manual Muscle Testing Right Flexion (C6) 4- Good- Extension (C7) 4 Good Comments Pain with testing of biceps Left Flexion (C6) 5 Normal Extension (C7) 5 Normal PT-OP-Q Treatments Start: 07/20/23 15:16 Freq: Status: Active Protocol: Document 08/21/23 16:05 AM (Rec: 08/21/23 17:05 AM [id number]) Cardio Equipment Upper Body Ergometer (UBE) Duration (Minutes) 5 RPM 70 Seat Position 12 Other fwd/back Therapeutic Exercises Prone Exercises Prone extension Resistance 2 Reps/Minutes 2x10 Comments on maltese ball, cues for scapular control Prone row Prone Exercise Name Prone row Side bilateral Resistance 2 Reps/Minutes 2x10 Comments on ball, tactile cueing for scapular control Sidelying Exercises MT Sidelying Exercise Name Prone MT, cues for scapular control Shoulder ER Sidelying Exercise Name Sidelying shoulder ER Side right Equipment Used towel at elbow Reps/Minutes 2x10 Comments tactile cues for LT and scap stab Standing Exercises Corner pec stretch Side bilateral Reps/Minutes x30 sec Shoulder extension Standing Exercise Name Shoulder extension Side bilateral Resistance GTB Reps/Minutes 2x10 Comments tactile cueing for scap stab, LT Row Standing Exercise Name Standing row Side bilateral Resistance GTB Reps/Minutes 2x10 Comments cues for scap stab Other Exercises Foam roll Other Exercise Name pec stretch and foam rolling thoracic spine Equipment Used black foam roller Manual Therapy Treatment Soft Tissue Mobilization Periscapular Body Location infraspinatus, teres major/ minor, posterior deltoid Body Position Sidelying Comments L sidelying Manual Techniques PROM Type all directions PT-OP-T Assessment and Plan Start: 07/20/23 15:16 Freq: Status: Active Protocol: Document 08/21/23 16:05 AM (Rec: 08/21/23 17:05 AM [id number]) Physical Therapy Assessment Goals HEP Hematologist Oncologist Goal (LTG) Pt independent with HEP. LTG Duration 08/31/23 ROM Impairment Pt with limitations with R shoulder flexion. AROM at 135 deg Short Term Goal (STG) R=L AROM shoulder flexion. 08/16/23: Pt progressing, though goal unmet. Pt with AROM flexion of 142 deg STG Duration 08/10/23 Quick Dash Impairment Pt score of 18% on Quick Dash Usp Goal (LTG) Pt with score of <10% on Quick Dash LTG Duration 08/31/23 Sleep Impairment Pt with R shoulder pain with sleeping Short Term Goal (STG) 08/16/23: Pt reports that pain is decreased with sleep, though continues to wake him up at times. Usp Goal (LTG) Pt to report that he is able to sleep without increase in shoulder pain. LTG Duration 08/31/23 Pain Impairment Pt reports 5/10 pain at R shoulder. Short Term Goal (STG) Pt reports 3/10 pain at R shoulder. 08/16/23: Pt reports continued pain up to 5/10 at times. STG Duration 08/10/23 Hematologist Oncologist Goal (LTG) Pt reports pain <1/10 at R shoulder LTG Duration 08/31/23 Assessment Summary Assessment Pt continues to demonstrate difficulty with scapular control, particularly with LT. Pt requires manual cueing of scapula exercise. Pt demonstrates difficulty with upward rotation of scapula with flexion and abduction. Pt with stiffness of pecs and scapulothoracic region, likely contributing to movement faults at scapula. Pt would benefit form continued PT to progress functional shoulder strength. Physical Therapy Plan Frequency and Duration Frequency of Treatment 2x/Week Duration of treatment (weeks) 6 Plan of Care Start Date 07/20/23 Plan of Care End Date 08/31/23 Therapeutic Interventions Therapeutic Interventions Home Exercise Program,Joint Mobilizations,Manual Therapy, Neuromuscular Re-education, Patient/Caregiver Education, Self-Care/Home Management,Soft Tissue Mobilization,Taping, Therapeutic Activities, Therapeutic Exercises Modalities Cold Pack/Ice Massage,Electric Stimulation,Hot Packs, Ultrasound Next Visit Focus/Plan Next Note Type Treatment Note Next Visit Plan progress shoulder strength as tolerated, improve scapular control
--- NOTE | 2023-08-29 12:12 | PT.OPDS ---
Current Diagnoses Pain in right shoulder (08/21/23) Visit Care Team Role Provider Type Robb Patel MD Attending Provider Physician Family Provider Primary Care Provider Referring Provider Specialty: Internal Medicine Address: [address] [place] [address], [facility] [address], [address] Email: [email or web address] Visit Number Visit Number 5 Discharge Summary PT-OP-B Current Condition Start: 07/20/23 15:16 Freq: Status: Active Protocol: Document 07/23/23 15:17 AM (Rec: 07/23/23 17:28 AM [id number]) Current Condition History of Current Condition Onset Date March 2023 Current Complaints R shoulder pain History of Current Condition Pt reports pain started over the summer. Pt reports that he thinks that he might have fallen on it. Pain at top of shoulder. Pt reports sleep is difficulty. Pt reports symptoms with activity at 90 deg abduction/flexion. Pt reports that he is able to do push-ups without discomfort. Prior Treatments and Tests none scheduled PT-OP-C Subjective Start: 07/20/23 15:16 Freq: Status: Active Protocol: Document 08/21/23 16:05 AM (Rec: 08/21/23 17:05 AM [id number]) OP-PT Subjective Patient Comments Patient Comments Pt reports My shoulder is not terrible today. Pt reports that he called his referring provider to make appt and hopeful for MRI. PT-OP-J Posture/Palpation/Skin Start: 07/20/23 15:16 Freq: Status: Active Protocol: Document 07/20/23 15:16 AM (Rec: 07/20/23 18:08 AM [id number]) Posture Evaluation Position Sitting Head/C-Spine Posture Forward Head Shoulder Posture (L) Forward,(R) Forward Scapula Posture (L) Protracted,(R) Protracted, (R) Tipped PT-OP-K Range of Motion Start: 07/20/23 15:16 Freq: Status: Active Protocol: Document 07/20/23 15:16 AM (Rec: 07/20/23 18:08 AM [id number]) Shoulder Goniometric Range of Motion Shoulder Right Passive Flexion 150 Abduction 160 Right Active Shoulder ROM WFL No Testing Position Sitting Flexion 135 Abduction 160 Internal Rotation Behind Back (text) L1 Comments Aply ER: T6 Left Active Testing Position Sitting Flexion 162 Abduction 160 Internal Rotation Behind Back (text) T10 Comments Aply ER: T6 PT-OP-L Special Tests Start: 07/20/23 15:16 Freq: Status: Active Protocol: Document 07/20/23 15:16 AM (Rec: 07/20/23 18:08 AM [id number]) Special Tests Shoulder Special Tests Elevation Impingement Test Results + on R Speed's Biceps Test Results + on R PT-OP-M Strength Start: 07/20/23 15:16 Freq: Status: Active Protocol: Document 07/20/23 15:16 AM (Rec: 07/20/23 18:08 AM [id number]) Shoulder Strength Shoulder Manual Muscle Testing Right Flexion 4 Good Abduction (C5) 4 Good External Rotation 4 Good Internal Rotation 4 Good Comments Pain with abd and flex Left Flexion 5 Normal Abduction (C5) 5 Normal External Rotation 5 Normal Internal Rotation 5 Normal Elbow/Forearm Strength Elbow and Forearm Manual Muscle Testing Right Flexion (C6) 4- Good- Extension (C7) 4 Good Comments Pain with testing of biceps Left Flexion (C6) 5 Normal Extension (C7) 5 Normal PT-OP-T Assessment and Plan Start: 07/20/23 15:16 Freq: Status: Active Protocol: Document 08/29/23 12:12 AM (Rec: 08/29/23 12:15 AM [id number]) Physical Therapy Plan Discharge Physical Therapy Discharge Reasons Patient Request Discharge Comments Pt attended 5 physical therapy sessions. PT spoke with pt regarding POC. Pt's POC ends next week and pt is scheduled for appt with orthopedic for further assessment and imaging if indicated. Pt reports that he has had improvement in shoulder sxs since start of PT , but would like to have appt with ortho before continuing further with PT. Pt reports understanding of HEP.
== END 2023-09-03 11:08 | disposition home or self-care (01) ==
LOC: PHYS 16:00
PROVIDERS: Family Provider Internal Medicine; PCP Internal Medicine; Referring Provider Internal Medicine; Visit Provider Internal Medicine
DX: M25.511 Pain in right shoulder (principal)
CPT/HCPCS: 97110; 97140; 97161

== ENCOUNTER → 2023-09-27 12:15 | Outpatient (CLI) | payer OTHER, SELFPAY ==
--- NOTE | 2023-09-27 | DI.MRI.S_ITS ---
PROCEDURE: MR SHOULDER RT WO CON INDICATIONS: Right shoulder pain TECHNIQUE: Noncontrast oblique coronal T2 fast spin echo with fat saturation, oblique sagittal T1 spin echo and T2 fast spin echo with fat saturation, axial T1 spin echo and T2 fast spin echo with fat saturation through the shoulder. COMPARISON: [facility], [place], XR SHOULDER 2+ VIEWS RIGHT, 09/13/2023, 14:45. FINDINGS: Image quality: Excellent. Rotator cuff: There is mild supraspinatus, infraspinatus and subscapularis tendinosis without high-grade tendon tear. Sagittal images demonstrate rotator cuff muscle atrophy. Bones and bursae: No bone marrow contusions or fractures. Moderate acromioclavicular joint degeneration. The acromion demonstrates conventional anatomy, without an os acromiale. No pathologic subacromial-subdeltoid or subcoracoid bursal fluid is present. Capsule and soft tissues: There is tear of the posterior superior labrum and a 0.7 x 1.2 cm paralabral cyst. The long head of the biceps tendon demonstrates normal location and morphology. The rotator interval appears normal, without fibrosis. The coracohumeral ligament is normal in thickness. IMPRESSION: 1. Mild supraspinatus, infraspinatus and subscapularis tendinosis. No high-grade tendon tear. No rotator cuff muscle atrophy. 2. Moderate acromioclavicular joint degeneration. 3. Posterior superior labral tear and a paralabral cyst. Dictated by: Sheila Bragg M.D. on 09/27/2023 at 14:04 Approved by: Sheila Bragg M.D. on 09/27/2023 at 22:44
== END ==
PROVIDERS: Family Provider Internal Medicine; PCP Internal Medicine; Referring Provider Orthopaedic Surgery; Visit Provider Orthopaedic Surgery
DX: S43.431A Superior glenoid labrum lesion of right shoulder, initial encounter (principal); M19.011 Primary osteoarthritis, right shoulder; M75.101 Unspecified rotator cuff tear or rupture of right shoulder, not specified as traumatic
CPT/HCPCS: 73221

== ENCOUNTER → 2024-03-06 10:15 | Outpatient (CLI) | payer OTHER, SELFPAY ==
[2024-03-06 11:11] LABS: Add Manual Diff / Slide Review NO; Basophils Absolute Auto 0 /uL (0-100); Basophils Percent Auto 0.8 % (0-2); Eosinophils Absolute Auto 300 /uL (0-450); Eosinophils Percent Auto 4.8 % (2-4); Hematocrit 41.6 % (41-53); Lymphocytes Absolute Auto 1700 /uL (1100-4500); Lymphocytes Percent Auto 27.9 % (25-40); Mean Corpuscular HGB Conc 33.7 % (30-36); Mean Corpuscular Volume 97.7 fL (80-100); Monocytes Absolute Auto 700 /uL (0-900); Neutrophils Absolute Auto 3300 /uL (1500-7000); Neutrophils Percent Auto 55.5 % (50-75); Platelet Count 233 X10^3/uL (150-400); Red Blood Cell Count 4.26 X10^6/uL (4.5-5.9); Red Cell Distribution Width 13.5 % (11.6-14.8); White Blood Cell Count 5.9 X10^3/uL (4.5-11.0)
[2024-03-06 11:48] LABS: Alanine Aminotransferase 28 IU/L (<50); Albumin Globulin Ratio 1.9 (1.0-2.8); Alkaline Phosphatase 49 U/L (38-126); Aspartate Aminotransferase 35 IU/L (17-59); BUN Creatinine Ratio 17.8 (6-22); Bilirubin Total 0.8 mg/dL (0.2-1.3); Blood Urea Nitrogen 13 mg/dL (9-20); Calcium 9.8 mg/dL (8.4-10.2); Carbon Dioxide 30 mmol/L (22-32); Chloride 104 mmol/L (98-107); Estimated Glomerular Filt Rate > 60 mL/min (>60); Globulin 2.7 g/dL (1.7-4.1); Glucose 101 mg/dL (70-100); HEMOLYSIS 25 (0-50); Potassium 4.9 mmol/L (3.4-5.1); Sodium 141 mmol/L (137-145); Total Protein 7.7 g/dL (6.3-8.2)
== END ==
PROVIDERS: Family Provider Internal Medicine; PCP Internal Medicine; Referring Provider Internal Medicine; Visit Provider Internal Medicine
DX: R10.11 Right upper quadrant pain (principal)
CPT/HCPCS: 36415; 80053; 85025

== ENCOUNTER → 2024-03-12 07:26 | Outpatient (CLI) | payer OTHER, SELFPAY ==
--- NOTE | 2024-03-12 07:27 | DI.US.S_ITS ---
PROCEDURE: US ABDOMEN LIMITED INDICATIONS: ruq pain TECHNIQUE: Real-time focused scanning was performed of the abdomen, with image documentation. COMPARISON: None. FINDINGS: Liver measures 16.8 cm with steatosis. Gallbladder demonstrates no stones. Wall measures 4 mm. Common bile duct measures 3 mm. IMPRESSION: Mildly thickened gallbladder wall without visualized stone. Recommend correlation to patient's symptoms. While this could represent acalculous cholecystitis, hepatic disease can also have secondary effect of wall thickening. Dictated by: Estela Fuchs M.D. on 03/12/2024 at 11:21 Approved by: Estela Fuchs M.D. on 03/12/2024 at 11:21
== END ==
LOC: US 07:27
PROVIDERS: Family Provider Internal Medicine; PCP Internal Medicine; Referring Provider Internal Medicine; Visit Provider Internal Medicine
DX: R10.11 Right upper quadrant pain (principal)
CPT/HCPCS: 76705

== ENCOUNTER → 2024-04-03 07:45 | Outpatient (CLI) | payer OTHER, SELFPAY ==
--- NOTE | 2024-04-03 07:45 | DI.NM.S_ITS ---
PROCEDURE: [place] HIDA WITH CCK PHARMACEUTICAL: 5.5 mCi Tc-99m mebrofenin IV; 1.6 mcg CCK IV. INDICATIONS: Further testing needed on Gallbladder TECHNIQUE: Following intravenous administration of Tc-99m mebrofenin, sequential anterior abdominal images were obtained. To evaluate the contractile response of the gallbladder in response to Cholecystokinin (CCK), sincalide (0.02 ?g/kg) was administered by slow intravenous infusion approximately 60 minutes after the administration of the radiopharmaceutical. Sequential imaging was continued for 30 minutes after the start of CCK infusion. Gallbladder ejection fraction was calculated. COMPARISON: [facility], ABDOMEN LIMITED, 03/12/2024, 7:36. FINDINGS: Biliary scan: There is normal tracer uptake and excretion by the liver. There is normal visualization of the intrahepatic ducts, common bile duct, and gallbladder. There is normal tracer transit into the duodenum. CCK stimulation: There is normal contractile response of the gallbladder to CCK infusion. The calculated gallbladder ejection fraction is 82%; normal values are above 35%. It has been shown that any patient abdominal pain after CCK administration is related to the rate of CCK injection, rather than to any underlying gallbladder disease (Clinical Nuclear Medicine 2012; 37: 63-70. Journal of Nuclear Medicine 2014; 55: 1-9). IMPRESSION: 1. Normal filling of gallbladder. No evidence for acute cholecystitis. 2. Normal contractile response of gallbladder to CCK stimulation. Dictated by: Sheila Bragg M.D. on 04/03/2024 at 10:11 Approved by: Sheila Bragg M.D. on 04/03/2024 at 10:15
== END ==
PROVIDERS: Family Provider Internal Medicine; PCP Internal Medicine; Referring Provider Internal Medicine; Visit Provider Internal Medicine
DX: Q44.1 Other congenital malformations of gallbladder (principal)
CPT/HCPCS: 78227; A9537; J2805

== ENCOUNTER → 2024-06-18 07:00 | Outpatient (CLI) | payer OTHER, SELFPAY ==
--- NOTE | 2024-06-18 07:01 | DI.CT.S_ITS ---
PROCEDURE: CT ABDOMEN W CON INDICATIONS: RUQ PAIN TECHNIQUE: After the administration of intravenous contrast, 5 mm thick sections acquired from the diaphragms to the iliac crests. 5 mm thick coronal and sagittal reformats were acquired. For radiation dose reduction, the following was used: automated exposure control, adjustment of mA and/or kV according to patient size. COMPARISON: [place], [place], [place] HIDA WITH CCK, 04/03/2024, 8:28. [facility], , US ABDOMEN LIMITED, 03/12/2024, 7:36. FINDINGS: Image quality: Diagnostic. Lower Chest: No significant findings. ABDOMEN: Liver: No solid mass. Gallbladder: No radiopaque gallstones or wall thickening. Biliary ducts: No biliary dilation. Pancreas: No ductal dilation. Spleen: Size is within normal limits. Adrenal Glands: No adrenal nodules. Kidneys and Ureters: No hydronephrosis. No solid mass. No complex renal cystic lesion which requires follow up. Stomach and Bowel: Normal colonic caliber, without significant wall thickening. Normal appendix. Peritoneum: No abnormal intraperitoneal fluid. No free air. Ventral Wall: No hernia. Abdominal Nodes: No retroperitoneal or mesenteric adenopathy by size criteria. Vessels: Aorta and inferior vena cava are normal in size. Bones: No aggressive osseous abnormality. IMPRESSION: No findings to explain the patient's chronic right upper quadrant pain. Normal gallbladder. No nephrolithiasis. Normal appendix. Dictated by: Evan Chirinos M.D. on 06/18/2024 at 9:47 Approved by: Evan Chirinos M.D. on 06/18/2024 at 9:49
== END ==
LOC: CT 07:00
PROVIDERS: Family Provider Internal Medicine; PCP Internal Medicine; Referring Provider Internal Medicine Gastroenterology; Visit Provider Internal Medicine Gastroenterology
DX: R10.10 Upper abdominal pain, unspecified (principal)
CPT/HCPCS: 74160; Q9967

== ENCOUNTER → 2024-12-16 07:36 | Outpatient (CLI) | payer OTHER, SELFPAY ==
[2024-12-16 08:10] LABS: Add Manual Diff / Slide Review NO; Basophils Absolute Auto 100 /uL (0-100); Basophils Percent Auto 1.4 % (0-2); Eosinophils Absolute Auto 500 /uL (0-450); Eosinophils Percent Auto 7.6 % (2-4); Hemoglobin 14.5 g/dL (13.5-17.5); Lymphocytes Absolute Auto 2000 /uL (1100-4500); Lymphocytes Percent Auto 31.3 % (25-40); Mean Corpuscular HGB Conc 33.8 % (30-36); Mean Corpuscular Hemoglobin 33.1 PG (26-34); Mean Corpuscular Volume 98.1 fL (80-100); Monocytes Absolute Auto 600 /uL (0-900); Neutrophils Absolute Auto 3300 /uL (1500-7000); Neutrophils Percent Auto 50.7 % (50-75); Platelet Count 228 X10^3/uL (150-400); Red Blood Cell Count 4.38 X10^6/uL (4.5-5.9); Red Cell Distribution Width 13.6 % (11.6-14.8); White Blood Cell Count 6.4 X10^3/uL (4.5-11.0)
[2024-12-16 08:46] LABS: Alanine Aminotransferase 28 IU/L (<50); Albumin 4.8 g/dL (3.5-5.0); Albumin Globulin Ratio 1.9 (1.0-2.8); Alkaline Phosphatase 46 U/L (38-126); Aspartate Aminotransferase 29 IU/L (17-59); BUN Creatinine Ratio 15.4 (6-22); Bilirubin Total 0.7 mg/dL (0.2-1.3); Blood Urea Nitrogen 12 mg/dL (9-20); Calcium 9.7 mg/dL (8.4-10.2); Carbon Dioxide 28 mmol/L (22-32); Chloride 104 mmol/L (98-107); Estimated Glomerular Filt Rate > 60 mL/min (>60); Globulin 2.5 g/dL (1.7-4.1); Glucose 103 mg/dL (70-100); HEMOLYSIS < 15 (0-50); Potassium 5.2 mmol/L (3.4-5.1); Sodium 141 mmol/L (137-145); Total Protein 7.3 g/dL (6.3-8.2); Uric Acid 5.2 mg/dL (3.5-8.5)
== END ==
PROVIDERS: Family Provider Internal Medicine; PCP Internal Medicine; Referring Provider Internal Medicine; Visit Provider Internal Medicine
DX: M1A.9XX0 Chronic gout, unspecified, without tophus (tophi) (principal); D64.9 Anemia, unspecified; Z13.6 Encounter for screening for cardiovascular disorders
CPT/HCPCS: 36415; 80053; 84550; 85025

== ENCOUNTER → 2025-08-07 07:21 | Outpatient (CLI) | payer OTHER, SELFPAY ==
[2025-08-07 08:10] LABS: Add Manual Diff / Slide Review NO; Hematocrit 38.8 % (41-53); Hemoglobin 13.4 g/dL (13.5-17.5); Lymphocytes Absolute Auto 2100 /uL (1100-4500); Mean Corpuscular HGB Conc 34.6 % (30-36); Mean Corpuscular Hemoglobin 32.4 PG (26-34); Mean Corpuscular Volume 93.6 fL (80-100); Platelet Count 231 X10^3/uL (150-400)
[2025-08-07 08:32] LABS: Alanine Aminotransferase 19 IU/L (<50); Albumin 4.6 g/dL (3.5-5.0); Albumin Globulin Ratio 1.8 (1.0-2.8); Alkaline Phosphatase 52 U/L (38-126); Blood Urea Nitrogen 11 mg/dL (9-20); Calcium 9.8 mg/dL (8.4-10.2); Carbon Dioxide 25 mmol/L (22-32); Chloride 104 mmol/L (98-107); Cholesterol 222 mg/dL (140-199); Estimated Glomerular Filt Rate > 60 mL/min (>60); Globulin 2.6 g/dL (1.7-4.1); Glucose 105 mg/dL (70-99); HDL Cholesterol 74 mg/dL (40-60); HEMOLYSIS 15 (0-50); Lipase 85 U/L (23-300); Potassium 4.7 mmol/L (3.4-5.1); Sodium 139 mmol/L (137-145); Total Protein 7.2 g/dL (6.3-8.2); Triglycerides 130 mg/dL (35-150)
== END ==
PROVIDERS: Family Provider Internal Medicine; PCP Internal Medicine; Referring Provider Internal Medicine Gastroenterology; Visit Provider Internal Medicine Gastroenterology
DX: Z00.00 Encounter for general adult medical examination without abnormal findings (principal); R10.10 Upper abdominal pain, unspecified
CPT/HCPCS: 36415; 80053; 80061; 83690; 85025